=== PATIENT | female | born 1965 | race Caucasian/White ===

== ENCOUNTER → 2021-12-28 | Outpatient (CLI) | payer OTHER, SELFPAY ==
--- NOTE | 2021-12-28 13:15 | CYSPIN_PTH ---
PATIENT: WAYNE INGRAM LOC: [facility] U#:[id number] AGE/SX: 56/F ROOM: RE12/28/[address]: Dr. Richa Larsen MD : 1965 BED: DIS: 12/28/2021 SPEC #: [id number] RECD: 12/29/21 06:47 STATUS: KELLEN CHILEL #: [id number] WALLY: 12/28/21 13:[address]: Richa Larsen DEPT: CYTOLOGY RECD BY: Kami Cheke Tissues: Urine Procedures: Pap Stain (control) Special Stain Group II Cytospin Fluid HEADER OPERATION: Not noted PRE-OP DIAGNOSIS: Gross hematuria TISSUE SUBMITTED: Urine for cytology DIAGNOSIS CYTOLOGY Urine for cytology (cytospin): Negative for malignant cells. AM:[place] 12/29/2021 CYTOLOGY STUDY Slides are reviewed. CYTOLOGY GROSS Received is 50 ml of yellow cloudy fluid labeled with the patient's name and and designated per the requisition as urine. Submitted for cytology preparation. / [place] 12/28/2021 TC:5 CPT: 41174
[2021-12-28 16:32] LABS: Cytology, Body Fluid / CSF SEE PATHOLOGY REPORT
== END | disposition home or self-care (01) ==
PROVIDERS: Visit Provider Urology
DX: R31.0 Gross hematuria (principal)
CPT/HCPCS: 88108; 88313

== ENCOUNTER → 2022-02-01 | Outpatient (CLI) | payer OTHER, SELFPAY ==
--- NOTE | 2022-02-01 06:52 | CT_ITS ---
STUDY: CT ABDOMEN AND PELVIS WITH AND WITHOUT CONTRAST REASON FOR EXAM: Female, 56 years old. GROSS HEMATURIA RADIATION DOSAGE (If Supplied By Facility): CTDIvol = ( 16.80 ) mGy, DLP = ( 2456.89 ) mGycm TECHNIQUE: Transaxial images were obtained from the dome of the diaphragm to the symphysis pubis without oral contrast. IV 100mL Isovue-300 was administered. Sagittal and coronal images were reconstructed. Individualized dose optimization techniques were used for this CT. COMPARISON: None. FINDINGS: The visualized lung bases are unremarkable. The visualized portions of the heart are within normal limits. Normal liver. Normal gallbladder and extrahepatic biliary system. Normal spleen. Normal pancreas. Normal bilateral adrenal glands. Normal right kidney. There is a 4.7 mm nonobstructive calculus in the upper pole calyx of the left kidney. There is a 1.6 m cyst in the posterior lower pole of the left kidney. There is a 9 mm cyst in the posterior midportion of the right kidney. Post surgical changes are seen in the region of the stomach suggests a possible gastric bypass surgery Normal small intestine. Normal colon. The appendix is visualized and appears normal. Normal abdominal aorta. Normal inferior vena cava. Normal retroperitoneum. Normal urinary bladder. Small amount of free fluid is seen in the pelvis. Normal abdominal wall. Normal osseous structures. CT/CT Abd/Pelvis W/WO Contrast IMPRESSION: Small bilateral renal cysts. 4.7 mm nonobstructive calculus in the upper pole calyx of the left kidney. Prior gastric surgery. Electronically Signed: Giorgio Patterson MD at 9:34 EDT ,
== END | disposition home or self-care (01) ==
PROVIDERS: Referring Provider Urology; Visit Provider Urology
DX: R31.0 Gross hematuria (principal)
CPT/HCPCS: 74178; Q9967

== ENCOUNTER 2022-03-25 11:40 | Day surgery (SDC) | payer OTHER, SELFPAY ==
[2022-03-25 12:03] VITALS: BP 114/61; PULSE 55; RESP 16; TEMP 36.9; O2SAT 100; BMI 26.2
[2022-03-25] MEDS: Lactated Ringers 1,000 ML 15 ML IV (12:13)
[2022-03-25] MEDS: Cefazolin 2 GM in 0.9% Normal Saline 100 ML IV (13:20)
--- NOTE | 2022-03-25 13:25 | DCINST_ITS ---
Discharge Instructions Diet Discharge Diet: No restrictions Activity Discharge Activity: Return to Normal Activity May resume sexual activity in: No Restrictions Dressing / Incision Call your doctor if you observe: Fever of 101 or Higher, Inability to urinate and Inability to have a bowel movement Follow Up Care Please Follow Up With: Richa Larsen MD When: in 3 weeks in the office with KUB, call for appt Test Results: Test results from this visit will be discussed in further detail at your follow- up appointment, if applicable. Discharge Plan Admission Attending Provider: Richa Larsen Primary Care Provider: BRIANA CUMMINGS Discharge Orders/Prescriptions Prescriptions: New oxycodone-acetaminophen [Percocet] 5-325 mg tablet 1 tab PO Q8H PRN (Reason: pain) 3 Days Qty: 10 0RF cephalexin [cephalexin] 500 mg capsule 500 mg PO Q12 3 Days Qty: 6 0RF Continued calcium 500 mg Tablet 1,500 mg PO DAILY bupropion HCl 100 mg tablet 100 mg PO BID famotidine [Pepcid AC] 20 mg Tablet 40 mg PO DAILY vitamin A 10,000 unit Tablet 10,000 unit PO DAILY Bariatric Multivitamins 45 mg iron- 800 mcg-120 mcg Capsule 1 cap PO QHS Referrals / Follow Up: BRIANA CUMMINGS [Other] Disposition Disposition (needs filled in before D/C Order can be placed): Home, Self Care
--- NOTE | 2022-03-25 13:27 | OP.PCM_ITS ---
Report of Operation Date of Procedure: 03/25/22 Pre-Operative Diagnosis: Left renal calculus, gross hematuria Post-Operative Diagnosis: Same Surgery/Procedure Performed:: Cystoscopy, left retrograde pyelogram, left renal extracorporal shockwave lithotripsy Surgeon: Richa Larsen Type of Anesthesia: General Specimen's removed: None Description of Procedure: The patient is a 56-year-old female who developed gross hematuria and was found to have a left renal calculus. She now presents for definitive management with extracorporal shockwave lithotripsy and cystoscopy for complete evaluation. Informed consent was obtained. The patient was taken to the operating room and placed in the operating room table. Anesthesia monitored the head, neck, airway, IV access and vital signs throughout the case. Once anesthesia was appropriate ministered, the patient was placed into dorsolithotomy position was prepped and draped in usual sterile fashion. The cystoscope was inserted through the urethra under direct visualization into the urinary bladder. The bladder mucosa was visualized in its entirety finding no evidence of erythema, mass, foreign body or abnormality. The left ureter was gently cannulated with an 8 Macedonian cone-tip catheter and contrast was injected in retrograde fashion under fluoroscopic visualization outlining the lower pole 6 mm calculus. The lithotripter was then aligned with the stone and it was broken apart without difficulty. The patient was then awakened and taken recovery room in good condition. There were no complications during this procedure. Grafts/Implants Used: None Complications None Admit VTE Documentation VTE Present on Admission: Yes VTE Mechan Device Prophylaxis: SCD's VTE Pharm Prophylaxis ordered?: No
[2022-03-25 14:30] VITALS: BP 114/61; BP 122/77; PULSE 64; RESP 16; TEMP 36.6; O2SAT 16
[2022-03-25 14:45] VITALS: BP 114/61; BP 134/78; PULSE 52; RESP 16; O2SAT 100
[2022-03-25 14:57] VITALS: BP 114/61; BP 128/92; PULSE 50; RESP 16; TEMP 36.3; O2SAT 100
[2022-03-25 15:08] VITALS: BP 114/61
== END 2022-03-25 15:31 | disposition home or self-care (01) ==
LOC: SDC 11:41 → AC 11:44
PROVIDERS: Visit Provider Urology
PROC: (CPT 50590; principal; 2022-03-25 13:00)
DX: N20.0 Calculus of kidney (principal); R31.0 Gross hematuria; F32.A Depression, unspecified; K21.9 Gastro-esophageal reflux disease without esophagitis; G47.30 Sleep apnea, unspecified; Z98.84 Bariatric surgery status; Z79.899 Other long term (current) drug therapy
CPT/HCPCS: 50590; 00873; J7120; J2405

== ENCOUNTER → 2022-04-14 | Outpatient (CLI) | payer OTHER, SELFPAY ==
--- NOTE | 2022-04-14 15:03 | RAD_ITS ---
STUDY: X-RAY - ABDOMEN/PELVIS REASON FOR EXAM: Female, 56 years old. Renal calculus. TECHNIQUE: Two AP supine views of the abdomen and pelvis. COMPARISON: CT of the abdomen pelvis, 01/02/2022 FINDINGS: Normal visualized lung bases. There is gassy prominence of the hepatic flexure proximal transverse colon. Increased feces is seen throughout the colon. There is no small bowel dilatation. There is no demonstrated free abdominal air. The visualized liver, spleen and kidneys are grossly normal in size and morphology. The calculus in the upper pole left kidney on the CT is not appreciated on the current study. Surgical changes are again seen in the left upper quadrant. Normal soft tissue structures. Mild levoscoliosis and degenerative changes of the lumbar spine. RAD/Abdomen Single View IMPRESSION: Findings consistent with constipation. There is no visualized renal or ureteral calculus. Electronically Signed: Kun Boss DO at 17:18 EDT ,
== END | disposition home or self-care (01) ==
LOC: MTRAD 15:02
PROVIDERS: Referring Provider Urology; Visit Provider Urology
DX: N20.0 Calculus of kidney (principal)
CPT/HCPCS: 74018

== ENCOUNTER → 2022-07-20 | Outpatient (CLI) | payer OTHER, SELFPAY ==
--- NOTE | 2022-07-20 13:18 | CT_ITS ---
STUDY: CT ABDOMEN AND PELVIS WITHOUT CONTRAST REASON FOR EXAM: Female, 56 years old. HEMATURIA/HX STONES. History of prior gastric bypass surgery. RADIATION DOSAGE (If Supplied By Facility): CTDIvol = ( 12.42 ) mGy, DLP = ( 580.71 ) mGycm TECHNIQUE: Transaxial images were obtained from the dome of the diaphragm to the symphysis pubis without oral contrast, and without intravenous contrast. Sagittal and coronal images were reconstructed. Individualized dose optimization techniques were used for this CT. COMPARISON: Comparison is made with prior study dated 02/01/2022. FINDINGS: The visualized lung bases are unremarkable. The visualized portions of the heart are within normal limits. Normal liver. Normal gallbladder and extrahepatic biliary system. Normal spleen. Normal pancreas. Normal bilateral adrenal glands. Normal right kidney. Mild degree of left hydronephrosis due to a 9.6 mm calculus at the left ureteropelvic junction. There is a 1.8 cm cyst in the posterior aspect of the lower pole of the left kidney. The patient is status post subtotal gastrectomy for gastric bypass surgery. Normal small intestine. Normal colon. The appendix is visualized and appears normal. Normal abdominal aorta. Normal inferior vena cava. Normal retroperitoneum. Normal urinary bladder. A pessary device is seen in the region of the cervix of the uterus. The patient is status post paniculectomy. A drainage catheter seen along the anterior abdominal wall. Postoperative changes are seen. There are degenerative changes of the visualized lumbar spine. CT/Abdomen/Pelvis without Cont IMPRESSION: 9.6 mm calculus at the left ureteropelvic junction with hydronephrosis. Status post anterior abdominal wall surgery with the drainage tube in situ. The patient is status post subtotal gastrectomy. Electronically Signed: Giorgio Patterson MD at 14:49 EST ,
== END | disposition home or self-care (01) ==
PROVIDERS: Referring Provider Urology; Visit Provider Urology
DX: R31.9 Hematuria, unspecified (principal); N93.9 Abnormal uterine and vaginal bleeding, unspecified; Z87.442 Personal history of urinary calculi
CPT/HCPCS: 74176

== ENCOUNTER 2022-08-19 11:51 | Day surgery (SDC) | payer OTHER, SELFPAY ==
--- NOTE | 2022-08-19 | CALC_PTH ---
PATIENT: WAYNE INGRAM LOC: [facility] [place] U#:[id number] AGE/SX: 56/F ROOM: RE08/19/[address]: Dr. Richa aLrsen MD : 1965 BED: DIS: 08/19/2022 SPEC #: [id number] RECD: 08/19/22 16:07 STATUS: KELLEN CHILEL #: [id number] WALLY: 08/19/22 00:[address]: Richa Larsen DEPT: SURGICAL PATHOLOGY RECD BY: Kami Cheek Tissues: CALCULI Procedures: Surgery Specimen Level I HEADER OPERATION: Cystoscopy, ureteroscopy with laser lithotripsy PRE-OP DIAGNOSIS: Left side UPJ obstruction TISSUE SUBMITTED: Left renal calculi for analysis GROSS DIAGNOSIS Left renal calculus, removal: Fragments of unremarkable calculi (gross diagnosis only). AM:[place] 08/23/2022 COMMENT The calculus is submitted in its entirety for chemical stone analysis. The results from this study will be reported separately. GROSS DESCRIPTION Received without fixative labeled with the patient's name and designated left renal calculus. The specimen consists of multiple irregular fragments of light william calculi measuring in aggregate 0.5 x 0.5 x 0.1 cm. The specimen is totally submitted in one cassette. The entire specimen is submitted for stone analysis. / AM:[place] 08/20/2022 CPT: 81491
[2022-08-19 12:25] VITALS: BP 128/71; PULSE 60; RESP 16; TEMP 37.3; O2SAT 100; BMI 25.5
[2022-08-19] MEDS: Lactated Ringers 1,000 ML 15 ML IV (12:48)
[2022-08-19 12:52] LABS: Hematocrit 41.1 % (37-47); Hemoglobin 14.3 g/dL (12.0-15.0); Mean Corp Hgb Conc 34.8 g/dL (32-36); Mean Corpuscular Hgb 31.6 pg (27.0-32.0); Mean Corpuscular Volume 90.7 fL (81-99); Mean Platelet Vol. 13.6 fl (6.2-12.0); Platelet Count 135 K/mm3 (150-450); RBC Distribution Width CV 11.9 % (11.6-14.6); RBC Distribution Width SD 39.6 fl (35.1-43.9); Red Blood Count 4.53 M/mm3 (4.2-5.4); White Blood Count 3.4 K/mm3 (4.4-11.0)
[2022-08-19 13:10] LABS: Anion Gap 5 (5-15); BUN 17 mg/dL (7-18); BUN/Creat Ratio 30.6 RATIO (10-20); Calcium,Total 9.9 mg/dL (8.5-10.1); Chloride 106 mmol/L (98-107); Creatinine, Serum 0.56 mg/dL (0.55-1.02); EST Glomerular Filtration Rate 120 mL/min (>60); Est Glom Filt Rate - Afr Amer 146 mL/min (>60); Estimated Creatinine Clearance 110.38 ml/min; Glucose 90 mg/dL (74-106); Potassium 4.7 mmol/L (3.5-5.1); Sodium Level 139 mmol/L (136-145)
--- NOTE | 2022-08-19 13:42 | DCINST_ITS ---
Discharge Instructions Diet Discharge Diet: No restrictions Activity Discharge Activity: Return to Normal Activity May resume sexual activity in: No Restrictions Dressing / Incision Call your doctor if you observe: Fever of 101 or Higher, Inability to urinate and Inability to have a bowel movement Follow Up Care Please Follow Up With: Richa Larsen MD When: Next week, call the office for an appointment Test Results: Test results from this visit will be discussed in further detail at your follow- up appointment, if applicable. Discharge Plan Admission Attending Provider: Richa Larsen Primary Care Provider: BRIANA CUMMINGS Discharge Orders/Prescriptions Prescriptions: New oxycodone-acetaminophen [Percocet] 5-325 mg tablet 1 tab PO Q8H PRN (Reason: pain) 3 Days Qty: 12 0RF cephalexin [cephalexin] 500 mg capsule 500 mg PO Q12 3 Days Qty: 6 0RF phenazopyridine [Pyridium] 200 mg tablet 200 mg PO TID PRN PRN (Reason: Bladder Spasms) 7 Days Qty: 30 0RF Continued calcium 500 mg Tablet 1,500 mg PO DAILY bupropion HCl 100 mg tablet 100 mg PO BID famotidine [Pepcid AC] 20 mg Tablet 40 mg PO DAILY vitamin A 10,000 unit Tablet 10,000 unit PO DAILY Bariatric Multivitamins 45 mg iron- 800 mcg-120 mcg Capsule 1 cap PO QHS oxycodone-acetaminophen [Percocet] 5-325 mg tablet 1 tab PO Q8H PRN (Reason: pain) 3 Days Qty: 10 0RF biotin 10 mg Tablet 10 mg PO DAILY saw palmetto 160 mg Capsule 320 mg PO DAILY Rx Instructions: give with food (meal/snack) Referrals / Follow Up: BRIANA CUMMINGS [Other] Disposition Disposition (needs filled in before D/C Order can be placed): Home, Self Care
[2022-08-19] MEDS: Cefazolin 2 GM in 0.9% Normal Saline 100 ML IV (14:05)
--- NOTE | 2022-08-19 15:50 | PCM.OPRPT ---
Report of Operation Date of Procedure: 08/19/22 Pre-Operative Diagnosis: Left renal calculus Post-Operative Diagnosis: Same Surgery/Procedure Performed:: Cystoscopy, left ureteroscopy, holmium laser lithotripsy, stone basket extraction, left ureteral stent insertion Surgeon: Richa Larsen Type of Anesthesia: General Specimen's removed: Stone fragments Description of Procedure: The patient is a 56-year-old female with a left renal calculus. She has undergone as well in the past and it was felt the stone was gone at that time. Recently she was seen in the emergency room with an obstructing left renal calculus. She now presents for ureteroscopy with laser lithotripsy and stone removal. Informed consent was obtained. The patient was taken to the operating room and placed on the operating room table. Anesthesia monitored the head, neck, airway, IV access and vital signs throughout the case. Once anesthesia was appropriately administered, the patient was placed into dorsolithotomy position was prepped and draped in usual sterile fashion. The cystoscope was inserted through the urethra under direct visualization into the urinary bladder. The bladder mucosa revealed no evidence of mass, erythema or abnormality. The left ureteral orifice was intubated with a 0.035 Glidewire followed by a second 1 alongside. A ureteral reaccessed sheath was inserted over the wire under fluoroscopic visualization and advanced easily. The flexible ureteroscope was then inserted through the sheath into the renal pelvis where the stone was identified. Using a 200 ?m holmium laser fiber, the stone was broken into multiple small pieces. The stone was very soft and broke easily. Using a stone basket, as many of the fragments as could be were removed. At the end of the basketing, the ureteroscope was used to flush out all the renal calyces with saline. There was no injury identified. The ureteroscope was used to directly visualize the entire length of the ureter which was intact without evidence of injury. The ureteral access sheath was removed under direct visualization as well revealing no evidence of injury. Using the safety wire that remain, the cystoscope was used to place a 4.5 Namibian 26 cm JJ stent. The stent was positioned within the renal pelvis as well as the urinary bladder. The patient's bladder was then emptied and the case was terminated. The patient was awakened and taken to the recovery room in good condition. There were no complications during this procedure. The stones were sent for analysis. Grafts/Implants Used: 4.5 x 26 cm JJ stent Complications None Admit VTE Documentation VTE Present on Admission: Yes VTE Mechan Device Prophylaxis: SCD's VTE Pharm Prophylaxis ordered?: No Reason prophylaxis not ordered:: Treatment Not Indicated
[2022-08-19 15:54] VITALS: BP 128/71; BP 147/82; PULSE 54; RESP 16; TEMP 36.6; O2SAT 100
[2022-08-19 16:00] VITALS: BP 128/71; BP 141/75; PULSE 60; RESP 16; O2SAT 100
[2022-08-19 16:15] VITALS: BP 128/71; BP 137/75; PULSE 59; RESP 16; O2SAT 100
[2022-08-19 16:30] VITALS: BP 128/71; BP 132/77; PULSE 54; RESP 16; TEMP 36.6; O2SAT 100
[2022-08-19 17:00] VITALS: BP 128/71
== END 2022-08-19 17:13 | disposition home or self-care (01) ==
LOC: SDC 11:52 → AC 11:58
PROVIDERS: Referring Provider Urology; Visit Provider Urology
PROC: 0TJ98ZZ Inspection of Ureter, Via Natural or Artificial Opening Endoscopic (ICD-10-PCS; CPT 52352; principal; 2022-08-19 13:25)
DX: N13.2 Hydronephrosis with renal and ureteral calculous obstruction (principal); N39.46 Mixed incontinence; N32.81 Overactive bladder; R31.0 Gross hematuria; M19.90 Unspecified osteoarthritis, unspecified site; K21.9 Gastro-esophageal reflux disease without esophagitis; F32.A Depression, unspecified; Z98.84 Bariatric surgery status; Z79.899 Other long term (current) drug therapy
CPT/HCPCS: 52356; 76000; 80048; 82360; 85027; 88300; J7120; J2405

== ENCOUNTER → 2022-11-22 | Outpatient (CLI) | payer OTHER, SELFPAY ==
--- NOTE | 2022-11-22 17:03 | US_ITS ---
INDICATION: LEFT RENAL STONES EXAMINATION: Ultrasound US Kidney(s) complete (eg, kidneys and bladder) TECHNIQUE: Cat scale and color doppler images were obtained of the kidneys. COMPARISON: July 20, 2022 CT. FINDINGS: RIGHT KIDNEY: 12.3 x 4.7 x 6.0 cm. There is no hydronephrosis. 7 mm and 5 mm mid pole nonobstructive calculus.1.7 cm midpole anechoic cyst. No evidence of solid renal mass. No perinephric collection is demonstrated. LEFT KIDNEY: 11.7 x 5.8 x 5.9 cm. Moderate hydronephrosis. 2.8 cm anechoic renal cyst. 6 mm mid pole calculi. No perinephric collection is demonstrated. URINARY BLADDER: 5.4 x 4.8 x 8.3 cm (115ml) anechoic bladder without focal wall thickening or internal debris. Bilateral ureteral jets are seen.. US/Kidney and Bladder IMPRESSION: Persistent moderate left hydronephrosis. CT could evaluate for obstructing ureteral stone as clinically indicated Bilateral nephrolithiasis Bilateral renal cysts. Electronically Signed: Shubham Baeza MD at 2:49 EDT ,
== END | disposition home or self-care (01) ==
PROVIDERS: Referring Provider Urology; Visit Provider Urology
DX: N20.0 Calculus of kidney (principal)
CPT/HCPCS: 76770

== ENCOUNTER → 2022-11-25 | Outpatient (CLI) | payer OTHER, SELFPAY ==
--- NOTE | 2022-11-25 12:54 | CT_ITS ---
STUDY: CT ABDOMEN AND PELVIS WITHOUT CONTRAST REASON FOR EXAM: Female, 56 years old. KIDNEY STONES, ABNORMAL US RADIATION DOSAGE (If Supplied By Facility): CTDIvol = ( 9.51 ) mGy, DLP = ( 451.59 ) mGycm TECHNIQUE: Transaxial images were obtained from the dome of the diaphragm to the symphysis pubis without oral contrast, and without intravenous contrast. Sagittal and coronal images were reconstructed. Limited study due to lack of oral and IV contrast. Individualized dose optimization techniques were used for this CT. COMPARISON: Comparison is made with prior CT scan dated July 20, 2022 and prior sonogram of the kidneys dated November 22, 2022. FINDINGS: The visualized lung bases are unremarkable. The visualized portions of the heart are within normal limits. Normal liver. Normal gallbladder and extrahepatic biliary system. Normal spleen. Normal pancreas. Normal bilateral adrenal glands. Normal right kidney. This a 2.8 cm cyst in the posterior aspect of the lower pole of the left kidney. Mild degree of the left hydronephrosis. No ureteral calculus is seen at this time. The patient is status post post gastric bypass surgery. Normal small intestine. Large amount of fecal material is seen throughout the colon. The appendix is visualized and appears normal. Normal abdominal aorta. Normal inferior vena cava. Normal retroperitoneum. Normal urinary bladder. Normal abdominal wall. Normal osseous structures. CT/Abdomen/Pelvis without Cont IMPRESSION: Limited study due to lack of oral and IV contrast. Mild degree of left hydronephrosis. No evidence of a ureteral obstruction at this time. Electronically Signed: Giorgio Patterson MD at 14:55 EDT ,
== END | disposition home or self-care (01) ==
PROVIDERS: Referring Provider Urology; Visit Provider Urology
DX: N13.30 Unspecified hydronephrosis (principal); N20.0 Calculus of kidney; R93.89 Abnormal findings on diagnostic imaging of other specified body structures
CPT/HCPCS: 74176

== ENCOUNTER 2023-02-10 06:08 | Day surgery (SDC) | payer OTHER, SELFPAY ==
[2023-02-10] VITALS (7 sets, daily range): BP systolic 116–146; BP diastolic 73–83; PULSE 54–58; RESP 16; TEMP 36.5–36.9; O2SAT 100; BMI 26.5
[2023-02-10] MEDS: Lactated Ringers 1,000 ML 15 ML IV (06:47)
[2023-02-10] MEDS: Famotidine 20 MG Tablet 40 MG PO (06:56)
[2023-02-10] MEDS: Cefazolin 2 GM in 0.9% Normal Saline 100 ML IV (07:41)
--- NOTE | 2023-02-10 07:45 | DCINST_ITS ---
Discharge Instructions Diet Discharge Diet: No restrictions Activity Discharge Activity: Return to Normal Activity Dressing / Incision Call your doctor if you observe: Fever of 101 or Higher, Inability to urinate and Inability to have a bowel movement Follow Up Care Please Follow Up With: Richa Larsen MD When: the office will call the patient to schedule Test Results: Test results from this visit will be discussed in further detail at your follow- up appointment, if applicable. Discharge Plan Admission Attending Provider: Richa Larsen Primary Care Provider: BRIANA CUMMINGS Discharge Orders/Prescriptions Prescriptions: New oxycodone-acetaminophen [Percocet] 5-325 mg tablet 1 tab PO Q8H PRN (Reason: pain) 3 Days Qty: 14 0RF cephalexin [cephalexin] 500 mg capsule 500 mg PO Q12 3 Days Qty: 6 0RF phenazopyridine [Pyridium] 200 mg tablet 200 mg PO TID PRN PRN (Reason: Bladder Spasms) 7 Days Qty: 30 0RF Continued calcium 500 mg Tablet 1,500 mg PO TID bupropion HCl 100 mg tablet 100 mg PO BID famotidine [Pepcid AC] 20 mg Tablet 40 mg PO DAILY vitamin A 10,000 unit Tablet 10,000 unit PO DAILY Bariatric Multivitamins 45 mg iron- 800 mcg-120 mcg Capsule 1 cap PO QHS azelaic acid 15 % gel 1 applic TOPICAL PRN Patient Comments: Apply to affected area twice daily. Referrals / Follow Up: BRIANA CUMMINGS [Other] Disposition Disposition (needs filled in before D/C Order can be placed): Home, Self Care
--- NOTE | 2023-02-10 09:28 | PCM.OPRPT ---
Report of Operation Date of Procedure: 02/10/23 Pre-Operative Diagnosis: bilateral ureteral calculus Post-Operative Diagnosis: same Surgery/Procedure Performed:: Cystoscopy, left ureteroscopy, holmium laser lithotripsy, stone basket extraction, left ureteral stent insertion Surgeon: Richa Larsen Type of Anesthesia: General Specimen's removed: left renal stone fragments Description of Procedure: The patient is a 57-year-old female who has been struggling with left renal calculi. She had shockwave lithotripsy and was found to have recurrent stone. She now presents for ureteroscopy, laser lithotripsy and stone removal. Informed consent was obtained. The patient was taken to the operating room and placed on the operating room table. Anesthesia monitored the head, neck, airway, IV access and vital signs throughout the case. Once anesthesia was appropriately administered the patient was placed into dorsolithotomy position was prepped and draped in usual sterile fashion. The cystoscope was inserted through the urethra under direct visualization into the upper right 0.035 Glidewire's. One of these wires was used for placement of a ureteral access sheath which was done under fluoroscopic visualization and without difficulty. A safety wire was left alongside the access sheath. The flexible ureteroscope was inserted through the sheath and access was obtained to the renal pelvis. In the upper calyx, the stone was identified and was broken into larger fragments which were removed with a basket. After the last fragment was visualized and removed, the ureteroscope was used to remove the ureteral access sheath under direct visualization revealing no evidence of injury to the ureter. The indwelling safety wire was used for placement of a 4.5 x 26 cm JJ stent. There was good positioning in the renal pelvis as well as the urinary bladder. The patient's bladder was then emptied and the case was terminated. She was awakened and taken to the recovery room in good condition. There were no complications during this procedure. Grafts/Implants Used: 4.5 Uzbek x 28 cm JJ stent Complications none Admit VTE Documentation VTE Present on Admission: Yes VTE Mechan Device Prophylaxis: SCD's VTE Pharm Prophylaxis ordered?: No Reason prophylaxis not ordered:: Treatment Not Indicated
[2023-02-22 11:36] LABS: Source Not Provided
== END 2023-02-10 09:57 | disposition home or self-care (01) ==
LOC: SDC 06:12 → AC 06:12
PROVIDERS: Referring Provider Urology; Visit Provider Urology
PROC: (CPT 52356; principal; 2023-02-10 07:20)
DX: N20.0 Calculus of kidney (principal); I10 Essential (primary) hypertension; Z87.442 Personal history of urinary calculi; Z87.448 Personal history of other diseases of urinary system; Z98.890 Other specified postprocedural states; N39.46 Mixed incontinence; Z79.899 Other long term (current) drug therapy
CPT/HCPCS: 52356; 00918; 76000; 82360; J7120; J2405

== ENCOUNTER → 2023-10-24 | Outpatient (CLI) | payer BC, SELFPAY ==
--- NOTE | 2023-10-24 13:05 | RAD_ITS ---
STUDY: X-RAY - ABDOMEN/PELVIS REASON FOR EXAM: Female, 57 years old. STONES TECHNIQUE: KUB COMPARISON: None. FINDINGS: Normal visualized lung bases. Diffusely distended fecal filled colon.. There is no demonstrated free abdominal air. The visualized liver, spleen and kidneys are grossly normal in size and morphology. Pessary noted within the vaginal vault. Lumbar spine demonstrates mild scoliosis and degenerative change. RAD/Abdomen Single View IMPRESSION: Diffusely distended fecal filled colon. No definitive evidence for renal calculus however the study is limited by bowel gas and fecal material within the colon CT or ultrasound recommended for more definitive evaluation if clinically warranted Electronically Signed: Sergey Jain MD at 21:31 EDT ,
== END | disposition home or self-care (01) ==
PROVIDERS: Referring Provider Urology; Visit Provider Urology
DX: N20.0 Calculus of kidney (principal)
CPT/HCPCS: 74018

== ENCOUNTER → 2024-03-29 | Outpatient (CLI) | payer BC, SELFPAY ==
--- NOTE | 2024-03-29 13:58 | US_ITS ---
INDICATION: HEMATURIA, HX OF KIDNEY STONES EXAMINATION: Ultrasound US Kidney(s) complete (eg, kidneys and bladder) TECHNIQUE: Cat scale and color doppler images were obtained of the kidneys. COMPARISON: Prior study dated: CT from 11/25/2022 FINDINGS: RIGHT KIDNEY: 11.6 x 5.7 x 6.1 cm. There is no hydronephrosis. Upper pole simple cyst measures 1.1 cm. No specific follow-up recommended. Midpole calculus measures 0.7 x 0.9 x 0.4 cm. LEFT KIDNEY: 11.8 x 5.2 x 6.1 cm. Moderate hydronephrosis is noted. Multiple calculi are seen. This includes a lower pole 0.7 cm calculus in the midpole 0.6 cm calculus. There is a lower pole 2.8 cm simple cyst. No specific follow-up recommended. URINARY BLADDER: Normal distended bladder with a prevoid bladder volume of 506 mL . Post void residual volume of 20 mL. No wall thickening. Bilateral ureteral jets are seen. US/Kidney and Bladder IMPRESSION: Moderate left hydronephrosis. Multiple bilateral renal calculi are seen. Electronically Signed: Mehul Bravo MD at 7:02 EDT ,
== END | disposition home or self-care (01) ==
PROVIDERS: Referring Provider Urology; Visit Provider Urology
DX: R31.9 Hematuria, unspecified (principal); Z87.442 Personal history of urinary calculi
CPT/HCPCS: 76770

== ENCOUNTER → 2024-04-05 | Outpatient (CLI) | payer BC, SELFPAY ==
--- NOTE | 2024-04-05 14:20 | CT_ITS ---
EXAM: CT ABDOMEN AND PELVIS WITHOUT INTRAVENOUS CONTRAST CLINICAL INDICATION: Unspecified hydronephrosis TECHNIQUE: Helically acquired images were obtained of the abdomen and pelvis without intravenous contrast. This CT exam was performed using one or more of the following dose reduction techniques: automated exposure control, adjustment of the mA and/or kV according to patient size, and/or use of iterative reconstruction technique. COMPARISON: CT Abdomen Pelvis dated 11/25/2022 FINDINGS: LOWER THORAX: Normal. Lung bases are clear. No cardiomegaly. No pericardial effusion. ABDOMEN: LIVER: Normal. Homogeneous. GALLBLADDER AND BILE DUCTS: Gallbladder is contracted consistent with a nonfasting state. No calcified gallstones. No gallbladder distention or wall edema. No intra- or extrahepatic biliary ductal dilation. PANCREAS: Normal. No focal cystic mass. SPLEEN: Normal. Normal size without focal cystic or solid mass. ADRENALS: Normal. No nodules. KIDNEYS AND URETERS: 2 punctate stones are noted within the left kidney. The previously noted 5 mm left renal stone is no longer present. 2.4 cm cyst again noted arising from the lower pole of the left kidney. STOMACH AND BOWEL: Moderate stool burden throughout the large bowel and rectum. Surgical changes of Hayley-en-Y gastric bypass. PELVIS: APPENDIX: No evidence of acute appendicitis. BLADDER: Normal. REPRODUCTIVE: Vaginal pessary in place. ABDOMEN and PELVIS: INTRAPERITONEAL SPACE: Normal. No ascites or other fluid collection. No free air. BONES/JOINTS: No suspicious lytic or blastic abnormality. SOFT TISSUES: Normal. No discrete abdominal or pelvic wall hernia. VASCULATURE: Normal. Abdominal aorta is non-dilated. LYMPH NODES: Normal. No enlarged lymph nodes. CT/Abdomen/Pelvis without Cont IMPRESSION: 1. No acute abdominal or pelvic abnormality. 2. Left nephrolithiasis. 3. Constipation. Electronically Signed: Francois Graves MD at 17:12 EDT ,
== END | disposition home or self-care (01) ==
LOC: CT 14:18
PROVIDERS: Referring Provider Urology; Visit Provider Urology
DX: N13.30 Unspecified hydronephrosis (principal); N20.0 Calculus of kidney
CPT/HCPCS: 74176

== ENCOUNTER → 2024-10-05 | Outpatient (CLI) | payer BC, SELFPAY ==
--- NOTE | 2024-10-05 10:08 | RAD_ITS ---
PROCEDURE: ABDOMEN SINGLE VIEW 10/05/2024 REASON FOR EXAM: KUB- KIDNEY STONE TECHNIQUE: Single view abdomen. COMPARISON: 04/05/2024 FINDINGS: No abnormal bowel distention.There is a moderate volume of stool and gas in the colon. No appreciable renal calculus. There is a postoperative suture line in the upper abdomen. A pessary device is noted in the pelvis. [id number] right and mild left degenerative changes are present in the hips. RAD/Abdomen Single View IMPRESSION: 1. No appreciable renal calculus. 2. Moderate colonic stool and gas burden. Reading Location: [facility]
== END | disposition home or self-care (01) ==
LOC: MTRAD 10:06
PROVIDERS: Referring Provider Urology; Visit Provider Urology
DX: N20.0 Calculus of kidney (principal)
CPT/HCPCS: 74018

== ENCOUNTER → 2025-05-06 | Outpatient (CLI) | payer BC, SELFPAY ==
--- NOTE | 2025-05-06 14:47 | RAD_ITS ---
PROCEDURE: ABDOMEN SINGLE VIEW 05/06/2025 REASON FOR EXAM: KIDNEY STONES TECHNIQUE: Procedure Code: RADABD Modality: DX Procedure: ABDOMEN SINGLE VIEW COMPARISON: Abdomen study 10/05/2024. RAD/Abdomen Single View IMPRESSION: Pessary again in position. A moderate stool burden is noted. The bowel-gas pattern is otherwise unremarkable. Upper abdominal sutures are again seen. No interval osseous change is noted. Evaluation of urinary tract calculi is limited by overlying stool, but no calcu thomas is clearly appreciated. Reading Location: [place] [id number]
== END | disposition home or self-care (01) ==
LOC: MTRAD 14:34
PROVIDERS: PCP Urology; Referring Provider Urology; Visit Provider Urology
DX: N20.0 Calculus of kidney (principal)
CPT/HCPCS: 74018